=== PATIENT | male | born 1985 | race Caucasian/White ===

== ENCOUNTER 2016-05-28 10:48 | Emergency (ER) | payer BC ==
--- NOTE | 2016-05-28 10:49 | ED Physician Chart ---
Chief Complaint/HPI - Patient Information Date Seen:: 06/15/16 Time Seen:: 10:49 Chief Complaint:: chest pain History of Present Illness:: 30-year-old male, otherwise healthy, complains of acute, constant, moderate, pressure-like, nonradiating, chest pain since last night. Has associated lightheadedness that started this morning. Denies any nausea, vomiting, fevers , chills, palpitations, numbness or tingling. Historian:: Patient Review:: Nurse's Note Reviewed Review of Systems - Review of Systems Other: Complete system review otherwise unremarkable except as noted in HPI. Past Medical History - Past Medical History Past Medical History: No significant medical hx Family History: None Social History: Non Smoker, No Alcohol, No Drug Use, Surgical History: None Psychiatricy History: None Medication: None Family Medical History - Family Member Paternal Grandfather Ethnicity: Non- Living Status: Hx Family Cancer: No Hx Family Coronary Artery Disease: Yes Hx Family Congestive Heart Failure: No Physical Exam - Physical Examination Other:: INITIAL VITAL SIGNS: Reviewed by me GENERAL: Alert and interactive. No acute distress HEAD: Head is normocephalic and atraumatic EYES: EOMI. . No scleral icterus. No conjunctival injection ENT: Moist mucous membranes. NECK: Supple. No masses. Full range of motion RESPIRATORY: No tachypnea. Clear breath sounds bilaterally. No wheezing, rales, or rhonchi CV: Regular rate and rhythm. No murmurs, rubs, or gallops ABDOMEN: Soft, non-distended, non-tender. No guarding. No rebound. No masses. EXTREMITIES: No deformity. No cyanosis. No edema. SKIN: Warm and dry. No obvious rashes. NEUROLOGIC: Alert and oriented. Face is symmetric. Speech is normal. Moves all extremities equally. Motor and sensory distally intact. Labs/Radiology/EKG Results - Lab Results Results: Lab Results 05/28/16 05/28/16 05/28/16 Range/Units 11:00 11:00 11:00 WBC 9.6 (4.8-10.8) Th/cmm RBC 5.53 (4.30-5.70) Mil/cmm Hgb 15.5 (13.2-17.3) gm/dL Hct 45.0 (39.0-49.0) % MCV 81.2 (80-99) fl MCH 28.0 (26.0-30.0) pg MCHC Differential 34.4 (28.0-36.0) pg RDW 11.5 (11.5-20.0) % Plt Count 277 (150-400) Th/cmm MPV 7.6 fl Neutrophils % 67.3 (40.0-80.0) % Lymphocytes % 27.3 (20.0-50.0) % Monocytes % 4.1 (2.0-10.0) % Eosinophils % 0.8 (0.0-5.0) % Basophils % 0.5 (0.0-2.0) % PT 11.3 (9.5-11.5) SECONDS INR 1.13 (0.5-1.4) Sodium 135 L (136-145) mEq/L Potassium 3.8 (3.5-5.1) mEq/L Chloride 103 (98-107) mEq/L Carbon Dioxide 26.5 (21.0-31.0) mEq/L Anion Gap 9.3 (7.0-16.0) BUN 13 (7-25) mg/dL Creatinine 1.0 (0.7-1.3) mg/dL Est GFR ( Amer) > 60.0 ml/min Est GFR (Non-Af Amer) > 60.0 ml/min BUN/Creatinine Ratio 13.0 Glucose 110 H (70-105) mg/dL Calcium 10.2 (8.6-10.3) mg/dL Creatine Kinase 234 H (30-223) U/L Troponin I (0.01-0.05) ng/mL B-Natriuretic Peptide < 5.0 L (5.0-100.0) pg/mL Triglycerides 106 (<150) mg/dL Cholesterol 193 (<200) mg/dL LDL Cholesterol Direct 145 (75-193) mg/dL HDL Cholesterol 40 (23-92) mg/dL 05/28/16 Range/Units 11:00 WBC (4.8-10.8) Th/cmm RBC (4.30-5.70) Mil/cmm Hgb (13.2-17.3) gm/dL Hct (39.0-49.0) % MCV (80-99) fl MCH (26.0-30.0) pg MCHC Differential (28.0-36.0) pg RDW (11.5-20.0) % Plt Count (150-400) Th/cmm MPV fl Neutrophils % (40.0-80.0) % Lymphocytes % (20.0-50.0) % Monocytes % (2.0-10.0) % Eosinophils % (0.0-5.0) % Basophils % (0.0-2.0) % PT (9.5-11.5) SECONDS INR (0.5-1.4) Sodium (136-145) mEq/L Potassium (3.5-5.1) mEq/L Chloride (98-107) mEq/L Carbon Dioxide (21.0-31.0) mEq/L Anion Gap (7.0-16.0) BUN (7-25) mg/dL Creatinine (0.7-1.3) mg/dL Est GFR ( Amer) ml/min Est GFR (Non-Af Amer) ml/min BUN/Creatinine Ratio Glucose (70-105) mg/dL Calcium (8.6-10.3) mg/dL Creatine Kinase (30-223) U/L Troponin I < 0.01 L (0.01-0.05) ng/mL B-Natriuretic Peptide (5.0-100.0) pg/mL Triglycerides (<150) mg/dL Cholesterol (<200) mg/dL LDL Cholesterol Direct (75-193) mg/dL HDL Cholesterol (23-92) mg/dL - Radiology Results Results: Single AP VIEW Portable Chest X-ray was interpreted independently and contemporaneously by Bill Felton MD: No cardiomegaly Normal mediastinum No lung infiltrates No pneumothorax No soft tissue or bony abnormalities - EKG Interpretations Comments:: 12-lead EKG Interpretation by Bill Felton MD: Normal Sinus Rhythm with ventricular rate of 85 beats per minute Normal axis Normal intervals No acute ST or T wave changes. No obvious STEMI ED Septic Shock - . Is Septic Shock (SBP<90, OR Lactate>4 mmol\L) present?: No Reassessment (Disposition) - Reassessment Reassessment:: The patient's blood pressure was elevated (>120/80) but appears stable without evidence of hypertensive emergency or urgency. The patient was counseled about the risks hypertension urged to pursue outpatient monitoring and therapy within a week with her primary care physician. Patient's labs are essentially unremarkable. Discussed all results with patient. Likely having anxiety. Says he lost his job about 2 weeks ago. Has increased life stressors. Gave Ativan here in the ER. Symptoms have resolved. Recommended follow-up with PCP 2-3 days. Gave return to ER precautions. Patient understands and agrees the plan. Reassessment Condition:: Improved - Diagnosis Diagnosis:: Anxiety Chest pain, unspecified Pre-hypertension - Aftercare/Follow up Instructions Aftercare/Follow-Up Instructions:: Counseled pt regarding lab results/diagnosis & need follow up, Refer to Discharge Instructions - Patient Disposition Discharge/Transfer:: Home Time:: 11:50 Condition at Disposition:: Improved ED Discharge Plan - Patient Disposition Admit/Discharge/Transfer: PT DISCHARGED HOME Condition at Disposition: Improved Instructions: Anxiety and Panic Attacks, [id number] Additional Instructions: Follow up with PMD this week. Accepting Physician: Nawaf Saldana [Active] - 1-3 Days
[2016-05-28 11:07] LABS: % BASOPHILS 0.5 % (0.0-2.0); % EOSINOPHILS 0.8 % (0.0-5.0); % LYMPHOCYTES 27.3 % (20.0-50.0); % MONOCYTES 4.1 % (2.0-10.0); % NEUTROPHILS 67.3 % (40.0-80.0); HEMOGLOBIN 15.5 gm/dL (13.2-17.3); MEAN CELL VOLUME 81.2 fl (80-99); MEAN CORPUSCULAR HGB CONC 34.4 pg (28.0-36.0); MEAN PLATELET VOLUME 7.6 fl; NEUTROPHILE ABSOLUTE 6.5 Th/cmm (1.8-8.0); PLATELET COUNT 277 Th/cmm (150-400); RED BLOOD COUNT 5.53 Mil/cmm (4.30-5.70); RED CELL DISTRIBUTION WIDTH 11.5 % (11.5-20.0); WHITE BLOOD COUNT 9.6 Th/cmm (4.8-10.8)
[2016-05-28 11:27] LABS: ANION GAP 9.3 (7.0-16.0); BUN - UREA NITROGEN 13 mg/dL (7-25); CALCIUM SERUM 10.2 mg/dL (8.6-10.3); CARBON DIOXIDE 26.5 mEq/L (21.0-31.0); CHLORIDE 103 mEq/L (98-107); CHOLESTEROL 193 mg/dL (<200); GLUCOSE 110 mg/dL (70-105); POTASSIUM SERUM 3.8 mEq/L (3.5-5.1); SODIUM SERUM 135 mEq/L (136-145); TRIGLYCERIDES 106 mg/dL (<150)
[2016-05-28 11:28] LABS: INR 1.13 (0.5-1.4); PROTHROMBIN TIME (TEST) 11.3 SECONDS (9.5-11.5)
[2016-05-28 11:39] LABS: BNP < 5.0 pg/mL (5.0-100.0)
[2016-05-28 11:58] LABS: CREATINE KINASE MB 3.7 ng/mL (0.6-6.3)
--- NOTE | 2016-05-29 10:29 | Diagnostic Imaging Report ---
Portable chest x-ray HISTORY: Pain The heart size appears somewhat generous. No focal pulmonary processes. No hilar or mediastinal abnormalities. IMPRESSION: 1. No acute focal pulmonary processes 2. Generous heart size
== END 2016-05-28 11:58 | disposition home or self-care (01) ==
LOC: ER 10:48
DX: R07.89 Other chest pain (principal); F41.9 Anxiety disorder, unspecified
CPT/HCPCS: 36415-UA; 71010-TC; 80048-TC; 80061-TC; 82550-TC; 82553; 83880-TC; 84484-TC; 85025-TC; 85610-TC; 93005